=== PATIENT | female | born 1960 | race Caucasian/White ===

== ENCOUNTER → 2017-12-11 | Outpatient (CLI) | payer BC ==
[~2017-12-11] MED LIST: ASPIRIN CHEW81 MG PO; ATENOLOL25 MG PO; BAYER PO; CALCIUM 600 +1 EAC2 PO; CENTRUM SILVER1 EACH PO; CRESTOR20 MG PO; DAILY VITAMIN1 EAC3 PO; ESTRADIOL1 MG PO; EYEPROMISE RESTORE PO; FERROUS SULFAT325 MG PO; GABAPENTIN100 MG PO; MIRAPEX0.25 MG PO; MONTELUKAST SOD10 MG PO; PANTOPRAZOLE SO40 MG PO; PREMARIN0.625 MG PO; ULTRAM 50MG50 MG PO; ZYRTEC10 M3 PO
--- NOTE | 2017-12-11 11:50 | Diagnostic Imaging Report ---
History:Seizures/syncope Comparison studies:None Technique: Axial images were obtained from the skull base to the vertex. Coronal and sagittal images reconstructed from the axial data. Intravenous contrast: None Findings: Scalp/skull: No abnormalities. Extra-axial spaces: No masses. No fluid collections. Brain sulci: Appropriate for age. Ventricles: No hydrocephalus. Parenchyma: No masses, hemorrhage, acute or chronic cortical vascular insults. Sellar/suprasellar region: No abnormalities. Craniocervical junction: Patent foramen magnum. No Chiari one malformation. Incidental findings: Atherosclerotic calcifications in the carotid siphons and distal vertebral arteries. Questionable 5 mm Tornwaldt cyst in the partially visualized nasopharynx at midline Impression: No intracranial abnormalities. Preliminary report provided by Drs. Moreno on 02/10/2018 at 1145 hours Signed by: Dr. Domenic Torres M.D. on 12/11/2017 4:46 PM
== END ==
LOC: CT 10:21
PROVIDERS: ATTEND Internal Medicine Interventional Cardiology
DX: R55 Syncope and collapse (principal); R56.9 Unspecified convulsions
CPT/HCPCS: 70450

== ENCOUNTER → 2019-02-14 | Day surgery (SDC) | payer BC ==
[~2019-02-14] MED LIST changes: +FENTANYL CITRATE/PF 100MCG/2 ML INJ ONE; +FUROSEMIDE40 MG PO; +MIDAZOLAM HCL 2 MG/2 ML VIAL ONE; +PROPOFOL IV EMULSION 10 MG/ML 50 ML VIAL ONE
--- OUTSIDE RECORDS SUMMARY | 2019-02-14 07:58 | XMS REPORT | Continuity of Care Document ---
Author Author [facility] Organization [facility] Address Unknown Phone Unavailable Care Team Providers Care Medical Services Assistant Name Role Phone [employer] Unavailable Unavailable Problems Problem Status Onset Date Classification Date Reported Comments Source ICD 559.0 / CPT 59642 [id number] Active 02/28/2014 [facility] Gastroesophageal reflux disease (disorder) Active Problem 07/08/2015 [facility] Hypertensive disorder, systemic arterial (disorder) Active Problem 07/08/2015 [facility] Sleep apnea (finding) Active Problem 07/08/2015 [facility] Ureteric stone (disorder) Active Problem 07/08/2015 [facility] UNK Active [facility] Medications Medication Details Route Status Patient Instructions Ordering Provider Order Date Source Ketorolac 15 mg, Route: IVP, Q6H, Dosing Weight 113.636, kg, Start date: 03/03/14 12:00:00, Duration: 6 doses or times, Stop date: 03/04/14 18:00:00 Inactive 03/03/2014 [facility] Ancef 1 gm, Route: IVPB, ONCE, Dosing Weight 113.636, kg, Start date: 03/03/14 10:25:00, Duration: 1 doses or times, Stop date: 03/03/14 10:25:00 Inactive 03/03/2014 [facility] Gentamicin Sulfate (CUSTODIAL) Route: IVPB, ONCE, Dosing Weight 113.636, kg, Start date: 03/03/14 10:24:00, Stop date: 03/03/14 10:24:00 Inactive 03/03/2014 [facility] oxybutynin 5 mg oral tablet 5 mg=1 tab, PO, TID, Other- See Comments, # 30 tab, 0 Refill(s) Active 03/03/2014 [facility] Pyridium 100 mg oral tablet 100 mg=1 tab, PO, TID, # 21 tab, 0 Refill(s) Active 03/03/2014 [facility] Acetaminophen 325 MG / Hydrocodone Bitartrate 7.5 MG Oral Tablet [Alice 7.5/325] 1-2 tab, PO, Q4-6H, Pain, # 30 tab, 0 Refill(s) Active 03/03/2014 [facility] Ciprofloxacin 500 MG Oral Tablet [Cipro] 500 mg=1 tab, PO, Q12H, # 14 tab, 0 Refill(s) Active 03/03/2014 [facility] Hydromorphone 0.3 mg, Route: IVP, Q3H, Dosing Weight 113.636, kg, PRN Pain Score 4-6, Start date: 03/03/14 10:15:00, Duration: 30 day, Stop date: 04/02/14 10:14:00 Inactive 03/03/2014 [facility] Naloxone 0.04 mg, Route: IVP, Q2MIN, Dosing Weight 113.636, kg, PRN Narcotic Reversal, Start date: 03/03/14 10:12:00, Duration: 8 doses or times, Stop date: Limited # of times Inactive 03/03/2014 [facility] Diphenhydramine 12.5 mg, Route: IVP, Drug form: INJ, Q6H, Dosing Weight 113.636, kg, PRN Itching, Start date: 03/03/14 10:12:00, Duration: 30 day, Stop date: 04/02/14 10:11:00 Inactive 03/03/2014 [facility] Ondansetron 4 mg, Route: IVP, ONCE, Dosing Weight 113.636, kg, PRN Nausea & Vomiting, Start date: 03/03/14 10:12:00 Inactive 03/03/2014 [facility] Promethazine 6.25 mg, Route: IVPB, ONCE, Dosing Weight 113.636, kg, PRN Nausea & Vomiting, Start date: 03/03/14 10:12:00 Inactive 03/03/2014 [facility] Oxycodone Hydrochloride 1 MG/ML Oral Solution 10 mg, Route: NG, Drug form: LIQ, Q4H, Dosing Weight 113.636, kg, PRN Pain Score 7-10, Start date: 03/03/14 10:12:00, Duration: 30 day, Stop date: 04/02/14 10:11:00 Inactive 03/03/2014 [facility] Oxycodone 10 mg, Route: PO, Drug form: TAB, Q4H, Dosing Weight 113.636, kg, PRN Pain Score 7-10, Start date: 03/03/14 10:12:00, Duration: 30 day, Stop date: 04/02/14 10:11:00 Inactive 03/03/2014 [facility] Acetaminophen 1,000 mg, Route: IVPB, Drug form: INJ, ONCE, Dosing Weight 113.636, kg, PRN Pain Score 1-3, Start date: 03/03/14 10:12:00, Duration: 1 doses or times, Stop date: Limited # of times Inactive 03/03/2014 [facility] Morphine 4 mg, Route: IVP, Q5Min, Dosing Weight 113.636, kg, PRN Pain Score 7-10, Start date: 03/03/14 10:12:00, Duration: 3 doses or times, Stop date: Limited # of times Inactive 03/03/2014 [facility] Flumazenil 0.2 mg, Route: IVP, PRN, Dosing Weight 113.636, kg, PRN Benzodiazepine Reversal, Initial dose, Start date: 03/03/14 10:12:00, Duration: 30 day, Stop date: 04/02/14 10:11:00 Inactive 03/03/2014 [facility] Meperidine 12.5 mg, Route: IVP, Q30Min, Dosing Weight 113.636, kg, PRN Other -See Comment, For shivering, Start date: 03/03/14 10:12:00, Duration: 2 doses or times, Stop date: Limited # of times Inactive 03/03/2014 [facility] Fentanyl 50 microgram, Route: IVP, Q5Min, Dosing Weight 113.636, kg, PRN Pain Score 7-10, Start date: 03/03/14 10:12:00, Duration: 2 doses or times, Stop date: Limited # of times Inactive 03/03/2014 [facility] Ketorolac 30 mg, Route: IVP, ONCE, Dosing Weight 113.636, kg, Start date: 03/03/14 10:12:00, Duration: 1 doses or times, Stop date: 03/03/14 10:12:00 Inactive 03/03/2014 [facility] Hydromorphone 0.5 mg, Route: IVP, Q5Min, Dosing Weight 113.636, kg, PRN Pain Score 7-10, Start date: 03/03/14 10:12:00, Duration: 4 doses or times, Stop date: Limited # of times Inactive 03/03/2014 [facility] Calcium Chloride 0.0014 MEQ/ML / Potassium Chloride 0.004 MEQ/ML / Sodium Chloride 0.103 MEQ/ML / Sodium Lactate 0.028 MEQ/ML Injectable Solution 1,000 mL, Rate: 125 ml/hr, Infuse over: 8 hr, Route: IV, Dosing Weight 113.636 kg, Total Volume: 1,000, Start date: 03/03/14 10:12:00, Duration: 30 day, Stop date: 04/02/14 10:11:00 Inactive 03/03/2014 [facility] Calcium Chloride 0.0014 MEQ/ML / Potassium Chloride 0.004 MEQ/ML / Sodium Chloride 0.103 MEQ/ML / Sodium Lactate 0.028 MEQ/ML Injectable Solution 1,000 mL, Rate: 25 ml/hr, Infuse over: 40 hr, Route: IV, Dosing Weight 113.636 kg, Total Volume: 1,000, Start date: 03/03/14 8:52:00, Duration: 30 day, Stop date: 04/02/14 8:51:00 Inactive 03/03/2014 [facility] Eye Promise restore Eye Promise restore, PO, Daily, Refill(s) 0 Active 03/01/2014 [facility] Calcium 600 +D oral tablet 1 tab, PO, Daily, # 270 tab, 0 Refill(s) Active 03/01/2014 [facility] Aspirin 81 MG Enteric Coated Tablet 81 mg=1 tab, PO, Daily, # 0 tab, 0 Refill(s) Active 03/01/2014 [facility] Ascorbic Acid / Biotin / Folic Acid / Niacin / pantothenate / pyridoxine / Riboflavin / Thiamine / Vitamin B 12 0 Refill(s) Active 03/01/2014 [facility] Trice 0 Refill(s) Active 03/01/2014 [facility] cetirizine hydrochloride 10 MG Oral Tablet [Zyrtec] 10 mg=1 tab, PO, Daily, # 30 tab, 0 Refill(s) Active 03/01/2014 [facility] gabapentin 100 MG Oral Capsule 300 mg=3 cap, PO, Bedtime, # 240 cap, 0 Refill(s) Active 03/01/2014 [facility] Pramipexole 0 Refill(s) Active 03/01/2014 [facility] Premarin 0 Refill(s) Active 03/01/2014 [facility] Rosuvastatin calcium 5 MG Oral Tablet [Crestor] 5 mg=1 tab, PO, Bedtime, # 30 tab, 0 Refill(s) Active 03/01/2014 [facility] Atenolol 25 MG Oral Tablet 25 mg=1 tab, PO, BID, # 60 tab, 0 Refill(s) Active 03/01/2014 [facility] Allergies, Adverse Reactions, Alerts Substance Category Reaction Severity Reaction type Status Date Reported Comments Source breatheen Assertion Drug allergy Active [facility] Immunizations No Data Provided for This Section Results Order Name Results Value Reference Range Date Interpretation Comments Source ELECTROLYTES AGAP 10.3 10.0 - 20.0 03/01/2014 [facility] ELECTROLYTES eGFR 104 03/01/2014 <sup>1</sup>Result Comment: The eGFR is calculated using the CKD-EPI formula. In most young, healthy individuals the eGFR will be >90 mL/min/1.73m2. The eGFR declines with age. An eGFR of 60-89 may be normal in some populations, particularly the elderly, for whom the CKD-EPI formula has not been extensively validated. Use of the eGFR is not recommended in the following populations:& lt;br/>
Individuals with unstable creatinine concentrations, including patients and those with serious co-morbid conditions.

Patients with extremes in muscle mass or diet.

The data above are obtained from the National Kidney Disease Education Program (NKDEP) which additionally recommends that when the eGFR is used in patients with extremes of body mass index for purposes of drug dosing, the eGFR should be multiplied by the estimated BMI. [facility] ELECTROLYTES Chloride Lvl 101 95 - 109 03/01/2014 [facility] ELECTROLYTES Glucose Lvl 71 70 - 99 03/01/2014 <sup>2</sup>Interpretive Data: Adult reference range values reflect the clinical guidelines
of the [place] [employer]. [facility] ELECTROLYTES Potassium Lvl 4.3 3.5 - 5.1 03/01/2014 [facility] ELECTROLYTES Sodium Lvl 139 135 - 145 03/01/2014 [facility] ELECTROLYTES Creatinine Lvl 0.6 0.5 - 1.4 03/01/2014 [facility] ELECTROLYTES BUN 15 7 - 22 03/01/2014 [facility] ELECTROLYTES Calcium Lvl 9.8 8.5 - 10.5 03/01/2014 [facility] ELECTROLYTES CO2 32 24 - 32 03/01/2014 [facility] HEMATOLOGY Eosinophils # 0.2 0.0 - 0.5 03/01/2014 [facility] Segs-Bands # 5.3 1.5 - 8.1 03/01/2014 [facility] HEMATOLOGY Lymphocytes # 3.2 1.0 - 5.5 03/01/2014 [facility] HEMATOLOGY Basophils 0.3 0.0 - 1.0 03/01/2014 [facility] HEMATOLOGY Monocytes # 1.1 0.0 - 0.8 03/01/2014 [facility] HEMATOLOGY Eosinophils 2.3 0.0 - 4.0 03/01/2014 [facility] Monocytes 10.8 2.0 - 12.0 03/01/2014 [facility] HEMATOLOGY Segs 53.9 45.0 - 75.0 03/01/2014 [facility] Lymphocytes 32.7 20.0 - 40.0 03/01/2014 [facility] MCHC 32.7 32.0 - 36.0 03/01/2014 [facility] MCH 28.7 27.0 - 31.0 03/01/2014 [facility] MCV 87.8 80.0 - 98.0 03/01/2014 [facility] WBC 9.9 3.7 - 10.4 03/01/2014 [facility] RBC 4.12 4.20 - 5.40 03/01/2014 [facility] Hgb 11.8 12.0 - 16.0 03/01/2014 [facility] MPV 8.5 7.4 - 10.4 03/01/2014 [facility] Platelet 264 133 - 450 03/01/2014 [facility] HEMATOLOGY RDW 13.6 11.5 - 14.5 03/01/2014 [facility] Hct 36.2 36.0 - 48.0 03/01/2014 [facility] Pathology Reports No Data Provided for This Section Diagnostic Reports Report Value Date Source Abdomen AP DX PROCEDURE: Abdomen 1 view CLINICAL INFORMATION n20.1 ureteral stone, Kidney stone removal February 2014. Kidney stone check up. COMPARISON: May [address] Right upper quadrant surgical barry. Air-filled loops of small and large bowel. Lower pelvic phleboliths. 9 mm central bladder stone is not excluded. Intact osseous structures. SL: 13 05/07/2015 [facility] Consultation Notes No Data Provided for This Section Discharge Summaries No Data Provided for This Section History and Physicals No Data Provided for This Section Vital Signs Vital Sign Value Date Comments Source Systolic (mm Hg) 123 03/03/2014 [facility] Diastolic (mm Hg) 64 03/03/2014 [facility] Diastolic (mm Hg) 70 03/03/2014 [facility] Systolic (mm Hg) 115 03/03/2014 [facility] Respitory Rate 18 03/03/2014 [facility] Systolic (mm Hg) 111 03/03/2014 [facility] Diastolic (mm Hg) 67 03/03/2014 [facility] Respitory Rate 15 03/03/2014 [facility] Respitory Rate 17 03/03/2014 [facility] Heart Rate 66 03/01/2014 [facility] Temperature Oral (F) 97.8 F 03/01/2014 [facility] BMI Calculated 41.69 03/01/2014 [facility] Height 165.1 cm 03/01/2014 [facility] Weight 113.636 03/01/2014 [facility] Encounters Location Location Details Encounter Type Encounter Number Reason For Visit Attending Provider ADM Date DC Date Status Source [facility] OBS Day Surgery [id number] [facility] 03/03/2014 03/03/2014 [facility] OP Lab Registration Only [id number] [facility] 05/07/2015 07/06/2015 [facility] Procedures Procedure Code Date Perfomer Comments Source Appendectomy [id number] [facility] Cardiac catheterization [id number] [facility] section [id number] [facility] Cholecystectomy [id number] [facility] Hernia repair<sup>1</sup> [id number] 2008 [facility] Laparoscopic adjustable gastric banding<sup>2</sup> [id number] 2005 revision 2008 [facility] Tonsillectomy [id number] [facility] Assessment and Plan No Data Provided for This Section Plan of Care No Data Provided for This Section Social History Social History Date Source Social History TypeResponse Alcohol Current, Previous treatment: None. Alcohol use interferes with work or home: No. Drinks more than intended: No. Others hurt by drinking: No. Ready to change: No. Household alcohol concerns: No. Smoking Status Never smoker; Exposure to Tobacco Smoke None; Cigarette Smoking Last 365 Days No; Reg Smoking Cessation Counseling No 03/01/2014 [facility] Family History No Data Provided for This Section Advance Directives No Data Provided for This Section Functional Status No Data Provided for This Section
--- OUTSIDE RECORDS SUMMARY | 2019-02-14 07:58 | XMS REPORT | Summary of Care ---
Author Organization Unknown Address Unknown Phone Unavailable Encounter [facility](TANGELA) [id number] Date(s): 03/03/14 - 03/03/14 [facility] [address] [address] Discharge Disposition: Home Physician Attending: Nahum Way MD Physician_Referring: Nahum Way MD Reason for Visit ICD 559.0 / CPT 66873 [id number] Vital Signs 1 2 3 Most recent to oldest [Reference Range]: 165.1 cm (03/01/14 4:11 PM) Height 97.8 DegF (03/01/14 5:02 PM) Temperature Oral [96.4-99.1 DegF] 123 mmHg (03/03/14 11:15 AM) 115 mmHg (03/03/14 10:52 AM) 111 mmHg (03/03/14 10:45 AM) Systolic Blood Pressure [90-140 mmHg] 64 mmHg (03/03/14 11:15 AM) 70 mmHg (03/03/14 10:52 AM) 67 mmHg (03/03/14 10:45 AM) Diastolic Blood Pressure [60-90 mmHg] 18 BRMIN (03/03/14 10:52 AM) 15 BRMIN (03/03/14 10:45 AM) 17 BRMIN (03/03/14 10:30 AM) Respiratory Rate [14-20 BRMIN] 66 bpm (03/01/14 5:02 PM) Peripheral Pulse Rate [60-100 bpm] 113.636 kg (03/01/14 4:11 PM) Weight 41.69 m2 (03/01/14 4:11 PM) Body Mass Index Problem List Condition Effective Dates Status Health Status Informant GERD Active (gastroesophageal reflux disease)(Confirmed) Hypertension(Confirm Active ed) Sleep Active apnea(Confirmed) Ureteral Active stone(Confirmed) Allergies, Adverse Reactions, Alerts Substance Reaction Severity Status breatheen Active Medications acetaminophen 1,000 mg, Route: IVPB, Drug form: INJ, ONCE, Dosing Weight 113.636, kg, PRN Pain Score 1-3, Start date: 03/03/14 10:12:00, Duration: 1 doses or times, Stop date: Limited # of times Start Date: 03/03/14 Stop Date: 03/03/14 Status: Discontinued Trice 0 Refill(s) Start Date: 03/01/14 Status: Ordered Ancef 1 gm, Route: IVPB, ONCE, Dosing Weight 113.636, kg, Start date: 03/03/14 10:25:0 0, Duration: 1 doses or times, Stop date: 03/03/14 10:25:00 Start Date: 03/03/14 Stop Date: 03/03/14 Status: Completed aspirin 81 mg tablet, enteric coated 81 mg=1 tab, PO, Daily, # 0 tab, 0 Refill(s) Start Date: 03/01/14 Status: Ordered atenolol 25 mg oral tablet 25 mg=1 tab, PO, BID, # 60 tab, 0 Refill(s) Start Date: 03/01/14 Status: Ordered Calcium 600 +D oral tablet 1 tab, PO, Daily, # 270 tab, 0 Refill(s) Start Date: 03/01/14 Status: Ordered Cipro 500 mg oral tablet 500 mg=1 tab, PO, Q12H, # 14 tab, 0 Refill(s) Start Date: 03/03/14 Stop Date: 03/10/14 Status: Ordered Crestor 5 mg oral tablet 5 mg=1 tab, PO, Bedtime, # 30 tab, 0 Refill(s) Start Date: 03/01/14 Status: Ordered diphenhydrAMINE 12.5 mg, Route: IVP, Drug form: INJ, Q6H, Dosing Weight 113.636, kg, PRN Itching , Start date: 03/03/14 10:12:00, Duration: 30 day, Stop date: 04/02/14 10:11:00 Start Date: 03/03/14 Stop Date: 03/03/14 Status: Discontinued Eye Promise restore Eye Promise restore, PO, Daily, Refill(s) 0 Start Date: 03/01/14 Status: Ordered fentaNYL 50 microgram, Route: IVP, Q5Min, Dosing Weight 113.636, kg, PRN Pain Score 7-10, Start date: 03/03/14 10:12:00, Duration: 2 doses or times, Stop date: Limited # of times Start Date: 03/03/14 Stop Date: 03/03/14 Status: Discontinued fentaNYL 25 microgram, Route: IVP, Q5Min, Dosing Weight 113.636, kg, PRN Pain Score 4-6, Start date: 03/03/14 10:12:00, Duration: 4 doses or times, Stop date: Limited # of times Start Date: 03/03/14 Stop Date: 03/03/14 Status: Discontinued flumazenil 0.2 mg, Route: IVP, PRN, Dosing Weight 113.636, kg, PRN Benzodiazepine Reversal, Initial dose, Start date: 03/03/14 10:12:00, Duration: 30 day, Stop date: 04/02 10:11:00 Start Date: 03/03/14 Stop Date: 03/03/14 Status: Discontinued gabapentin 100 mg oral capsule 300 mg=3 cap, PO, Bedtime, # 240 cap, 0 Refill(s) Start Date: 03/01/14 Status: Ordered gentamicin Route: IVPB, ONCE, Dosing Weight 113.636, kg, Start date: 03/03/14 10:24:00, Sto p date: 03/03/14 10:24:00 Start Date: 03/03/14 Stop Date: 03/03/14 Status: Completed hydromorphone 0.5 mg, Route: IVP, Q5Min, Dosing Weight 113.636, kg, PRN Pain Score 7-10, Start date: 03/03/14 10:12:00, Duration: 4 doses or times, Stop date: Limited # of ti mes Start Date: 03/03/14 Stop Date: 03/03/14 Status: Discontinued hydromorphone 0.3 mg, Route: IVP, Q3H, Dosing Weight 113.636, kg, PRN Pain Score 4-6, Start da te: 03/03/14 10:15:00, Duration: 30 day, Stop date: 04/02/14 10:14:00 Start Date: 03/03/14 Stop Date: 03/03/14 Status: Discontinued ketorolac 30 mg, Route: IVP, ONCE, Dosing Weight 113.636, kg, Start date: 03/03/14 10:12:0 0, Duration: 1 doses or times, Stop date: 03/03/14 10:12:00 Start Date: 03/03/14 Stop Date: 03/03/14 Status: Discontinued ketorolac 15 mg, Route: IVP, Q6H, Dosing Weight 113.636, kg, Start date: 03/03/14 12:00:00 , Duration: 6 doses or times, Stop date: 03/04/14 18:00:00 Start Date: 03/03/14 Stop Date: 03/03/14 Status: Discontinued Lactated Ringers Injection IV 1000 mL 1,000 mL, Rate: 125 ml/hr, Infuse over: 8 hr, Route: IV, Dosing Weight 113.636 k g, Total Volume: 1,000, Start date: 03/03/14 10:12:00, Duration: 30 day, Stop da te: 04/02/14 10:11:00 Start Date: 03/03/14 Stop Date: 03/03/14 Status: Discontinued Lactated Ringers Injection IV 1000 mL 1,000 mL, Rate: 25 ml/hr, Infuse over: 40 hr, Route: IV, Dosing Weight 113.636 k g, Total Volume: 1,000, Start date: 03/03/14 8:52:00, Duration: 30 day, Stop carly e: 04/02/14 8:51:00 Start Date: 03/03/14 Stop Date: 03/03/14 Status: Discontinued meperidine 12.5 mg, Route: IVP, Q30Min, Dosing Weight 113.636, kg, PRN Other -See Comment, For shivering, Start date: 03/03/14 10:12:00, Duration: 2 doses or times, Stop d ate: Limited # of times Start Date: 03/03/14 Stop Date: 03/03/14 Status: Discontinued morphine Sulfate 4 mg, Route: IVP, Q5Min, Dosing Weight 113.636, kg, PRN Pain Score 7-10, Start d ate: 03/03/14 10:12:00, Duration: 3 doses or times, Stop date: Limited # of time s Start Date: 03/03/14 Stop Date: 03/03/14 Status: Discontinued morphine Sulfate 2 mg, Route: IVP, Q5Min, Dosing Weight 113.636, kg, PRN Pain Score 4-6, Start da te: 03/03/14 10:12:00, Duration: 5 doses or times, Stop date: Limited # of times Start Date: 03/03/14 Stop Date: 03/03/14 Status: Discontinued multivitamin 0 Refill(s) Start Date: 03/01/14 Status: Ordered naloxone 0.04 mg, Route: IVP, Q2MIN, Dosing Weight 113.636, kg, PRN Narcotic Reversal, St art date: 03/03/14 10:12:00, Duration: 8 doses or times, Stop date: Limited # of times Start Date: 03/03/14 Stop Date: 03/03/14 Status: Discontinued [place] 7.5/325 oral tablet 1-2 tab, PO, Q4-6H, Pain, # 30 tab, 0 Refill(s) Start Date: 03/03/14 Stop Date: 03/08/14 Status: Ordered ondansetron 4 mg, Route: IVP, ONCE, Dosing Weight 113.636, kg, PRN Nausea & Vomiting, Start date: 03/03/14 10:12:00 Start Date: 03/03/14 Stop Date: 03/03/14 Status: Discontinued oxybutynin 5 mg oral tablet 5 mg=1 tab, PO, TID, Other-See Comments, # 30 tab, 0 Refill(s) Start Date: 03/03/14 Status: Ordered oxyCODONE 10 mg, Route: PO, Drug form: TAB, Q4H, Dosing Weight 113.636, kg, PRN Pain Score 7-10, Start date: 03/03/14 10:12:00, Duration: 30 day, Stop date: 04/02/14 10:1 1:00 Start Date: 03/03/14 Stop Date: 03/03/14 Status: Discontinued oxyCODONE 5 mg, Route: PO, Drug form: TAB, Q4H, Dosing Weight 113.636, kg, PRN Pain Score 4-6, Start date: 03/03/14 10:12:00, Duration: 30 day, Stop date: 04/02/14 10:11: 00 Start Date: 03/03/14 Stop Date: 03/03/14 Status: Discontinued oxyCODONE 5 mg/5 mL oral solution 10 mg, Route: NG, Drug form: LIQ, Q4H, Dosing Weight 113.636, kg, PRN Pain Score 7-10, Start date: 03/03/14 10:12:00, Duration: 30 day, Stop date: 04/02/14 10:1 1:00 Start Date: 03/03/14 Stop Date: 03/03/14 Status: Discontinued oxyCODONE 5 mg/5 mL oral solution 5 mg, Route: NG, Drug form: LIQ, Q4H, Dosing Weight 113.636, kg, PRN Pain Score 4-6, Start date: 03/03/14 10:12:00, Duration: 30 day, Stop date: 04/02/14 10:11: 00 Start Date: 03/03/14 Stop Date: 03/03/14 Status: Discontinued pramipexole 0 Refill(s) Start Date: 03/01/14 Status: Ordered Premarin 0 Refill(s) Start Date: 03/01/14 Status: Ordered promethazine 6.25 mg, Route: IVPB, ONCE, Dosing Weight 113.636, kg, PRN Nausea & Vomiting, Start date: 03/03/14 10:12:00 Start Date: 03/03/14 Stop Date: 03/03/14 Status: Discontinued Pyridium 100 mg oral tablet 100 mg=1 tab, PO, TID, # 21 tab, 0 Refill(s) Start Date: 03/03/14 Stop Date: 03/10/14 Status: Ordered ZyrTEC 10 mg oral tablet 10 mg=1 tab, PO, Daily, # 30 tab, 0 Refill(s) Start Date: 03/01/14 Status: Ordered Results ELECTROLYTES Most recent to 1 oldest [Reference Range]: Sodium Lvl [135-145 139 mEq/L mEq/L] (03/01/14 4:50 PM) Potassium Lvl 4.3 mEq/L [3.5-5.1 mEq/L] (03/01/14 4:50 PM) Chloride Lvl [95-109 101 mEq/L mEq/L] (03/01/14 4:50 PM) CO2 [24-32 mEq/L] 32 mEq/L (03/01/14 4:50 PM) AGAP [10.0-20.0 10.3 mEq/L mEq/L] (03/01/14 4:50 PM) CHEM PANEL Most recent to 1 oldest [Reference Range]: Creatinine Lvl 0.6 mg/dL [0.5-1.4 mg/dL] (03/01/14 4:50 PM) eGFR 104 mL/min/1.73m2 1 *NA* (03/01/14 4:50 PM) BUN [7-22 mg/dL] 15 mg/dL (03/01/14 4:50 PM) Glucose Lvl [70-99 71 mg/dL 2 mg/dL] (03/01/14 4:50 PM) Calcium Lvl 9.8 mg/dL [8.5-10.5 mg/dL] (03/01/14 4:50 PM) 1Result Comment: The eGFR is calculated using the CKD-EPI formula. In most young, healthy individuals the eGFR will be >90 mL/min/1.73m2. The eGFR declines with age. An eGFR of 60-89 may be normal in some populations, particularly the elderly, for whom the CKD-EPI formula has not been extensively validated. Use of the eGFR is not recommended in the following populations: Individuals with unstable creatinine concentrations, including patients and those with serious co-morbid conditions. Patients with extremes in muscle mass or diet. The data above are obtained from the National Kidney Disease Education Program ( NKDEP) which additionally recommends that when the eGFR is used in patients with extremes of body mass index for purposes of drug dosing, the eGFR should be mul tiplied by the estimated BMI. 2Interpretive Data: Adult reference range values reflect the clinical guidelines of the [place] [employer]. HEMATOLOGY Most recent to 1 oldest [Reference Range]: WBC [3.7-10.4 K/CMM] 9.9 K/CMM (03/01/14 4:50 PM) RBC [4.20-5.40 4.12 M/CMM M/CMM] *LOW* (03/01/14 4:50 PM) Hgb [12.0-16.0 g/dL] 11.8 g/dL *LOW* (03/01/14 4:50 PM) Hct [36.0-48.0 %] 36.2 % (03/01/14 4:50 PM) MCV [80.0-98.0 fL] 87.8 fL (03/01/14 4:50 PM) MCH [27.0-31.0 pg] 28.7 pg (03/01/14 4:50 PM) MCHC [32.0-36.0 32.7 g/dL g/dL] (03/01/14 4:50 PM) RDW [11.5-14.5 %] 13.6 % (03/01/14 4:50 PM) Platelet [133-450 264 K/CMM K/CMM] (03/01/14 4:50 PM) MPV [7.4-10.4 fL] 8.5 fL (03/01/14 4:50 PM) Segs [45.0-75.0 %] 53.9 % (03/01/14 4:50 PM) Lymphocytes 32.7 % [20.0-40.0 %] (03/01/14 4:50 PM) Monocytes [2.0-12.0 10.8 % %] (03/01/14 4:50 PM) Eosinophils [0.0-4.0 2.3 % %] (03/01/14 4:50 PM) Basophils [0.0-1.0 0.3 % %] (03/01/14 4:50 PM) Segs-Bands # 5.3 K/CMM [1.5-8.1 K/CMM] (03/01/14 4:50 PM) Lymphocytes # 3.2 K/CMM [1.0-5.5 K/CMM] (03/01/14 4:50 PM) Monocytes # [0.0-0.8 1.1 K/CMM K/CMM] *HI* (03/01/14 4:50 PM) Eosinophils # 0.2 K/CMM [0.0-0.5 K/CMM] (03/01/14 4:50 PM) Medications Administered During Your Visit No data available for this section Immunizations No data available for this section Procedures Procedure Type Body Site Date of Procedure Related Diagnosis Appendectomy Cardiac catheterization section Cholecystectomy Hernia repair1 Laparoscopic adjustable gastric banding2 Tonsillectomy 86803 99131 revision 2009 Social History Social History Type Response Alcohol Use: Current, Previous treatment: None, Has alcohol use interfered with work or home life? No, Do you ever drink more than intended? No, Has anyone been hurt or at risk by your drinking? No, Ready to change: No, Concerns about alcohol use in household: No Smoking Status Never smoker, Exposure to Tobacco Smoke None, Cigarette Smoking Last 365 Days No, Reg Smoking Cessation Counseling No
--- OUTSIDE RECORDS SUMMARY | 2019-02-14 07:58 | XMS REPORT | Summary of Care ---
Author Author [facility] Organization [facility] Address Unknown Phone Unavailable Encounter [facility] Letty_yeimi(FIN) [id number] Date(s): 05/07/15 - 07/05/15 [facility] [address] [place] [address]- [phone] Discharge Disposition: Home Attending Physician: Nahum Way MD Vital Signs No data available for this section Problem List Condition Effective Dates Status Health Status Informant GERD Active (gastroesophageal reflux disease)(Confirmed) Hypertension(Confirm Active ed) Sleep Active apnea(Confirmed) Ureteral Active stone(Confirmed) Allergies, Adverse Reactions, Alerts Substance Reaction Severity Status breatheen Active Medications No data available for this section Results No data available for this section Immunizations No data available for this section Procedures Procedure Date Related Diagnosis Body Site Appendectomy Cardiac catheterization section Cholecystectomy Hernia repair1 Laparoscopic adjustable gastric banding2 Tonsillectomy 95817 [id number] revision 2009 Social History Social History Type Response Alcohol Current, Previous treatment: None. Alcohol use interferes with work or home: No. Drinks more than intended: No. Others hurt by drinking: No. Ready to change: No. Household alcohol concerns: No. Smoking Status Never smoker; Exposure to Tobacco Smoke None; Cigarette Smoking Last 365 Days No; Reg Smoking Cessation Counseling No Assessment and Plan No data available for this section
--- OUTSIDE RECORDS SUMMARY | 2019-02-14 07:58 | XMS REPORT ---
Author [facility] Address Unknown Phone Unavailable Care Team Providers Care Licensed Optician Name Role Phone ANDRE NIX Unavailable Unavailable RADHA RIOS Unavailable Unavailable Problems This patient has no known problems. Allergies, Adverse Reactions, Alerts This patient has no known allergies or adverse reactions. Medications This patient has no known medications. Results Test Description Test Time Test Comments Text Results Atomic Results Result Comments CT BRAIN WO 2017-12-11 11:47:00 [place] [address] Patient Name: ANDREW RIOS MR #: [id number] : 1960 Age/Sex: 57/F Req #: [id number] Adm Physician: Ordered by: ANDRE NIX MD Report #: [id number] Location: CT Room/Bed: Procedure: [id number] CT/CT BRAIN WO Exam Date: 12/11/17 Exam Time: 1109 REPORT STATUS: Signed History:Seizures/syncope Comparison studies:None Technique: Axial images were obtained from the skull base to the vertex. Coronal and sagittal images reconstructed from the axial data. Intravenous contrast: None Findings: Scalp/skull: No abnormalities. Extra-axial spaces: No masses. No fluid collections. Brain sulci: Appropriate for age. Ventricles: No hydrocephalus. Parenchyma: No masses, hemorrhage, acute or chronic cortical vascular insults. Sellar/suprasellar region: No abnormalities. Craniocervical junction: Patent foramen magnum. No Chiari one malformation. Incidental findings: Atherosclerotic calcifications in the carotid siphons and distal vertebral arteries. Questionable 5 mm Tornwaldt cyst in the partially visualized nasopharynx at midline Impression: No intracranial abnormalities. Preliminary report provided by Drs. Moreno on 02/10/2018 at 1145 hours Signed by: Dr. Domenic Torres M.D. on 12/11/2017 4:46 PM Dictated By: DOMENIC TORRES MD, MD 45 Transcribed By: AMBERLY on 12/11/171645 COPY TO: ANDRE NIX MD MRI WRIST RIGHT WO [place] [address] Patient Name: ANDREW RIOS MR #: [id number] : 1960 Age/Sex: 57/F Req #: [id number] Adm Physician: Ordered by: RADHA RIOS DO Report #: [id number] Location: MRI Room/Bed: Procedure: [id number] MRI/MRI WRIST RIGHT WO Exam Date: 05/29/17 Exam Time: 1315 REPORT STATUS: Signed TECHNIQUE: Magnetic resonance imaging of the RIGHT WRIST was performed WITHOUT injected contrast, on a 1.5 juan carlos magnet. Motion artifact partially limits sensitivity and specificity of the exam. HISTORY: Contusion, fell, metacarpophalangeal joint COMPARISON: None available. FINDINGS: Bone and bone marrow: No focal or infiltrative bone marrow replacing abnormality. No osteonecrosis. The wrist is imaged in extension. At least 2 punctate ossifications adjacent to the tip of the ulnar styloid process with a paucity of adjacent edema, the largest 3 mm. Joints: Trace intercarpal and carpometacarpal effusions, dorsal greater than volar. Minimal scattered degenerative changes. Ligaments: Scapholunate: Visible intact fibers without widening of the joint space. Lunotriquetral: Visible intact fibers without widening of the joint space. Triangular fibrocartilage complex: Intact Extrinsic ligaments: Intact Tendons: The flexor and extensor tendons are intact. Carpal tunnel: The median nerve is within normal limits. Other soft tissues: Otherwise, unremarkable. IMPRESSION: 1. No acute fracture. 2. Chronic punctate unhealed avulsion fractures from the tip of the ulnar styloid process. 3. Mild nonspecific arthritis, may be posttraumatic given the provided history. Signed by: Dr. Dario Galdamez M.D. on 05/29/2017 3:13 PM Dictated By: DARIO GALDAMEZ DO 1513 Transcribed By: AMBERLY on 05/29/17 1512 COPY TO: RADHA RIOS DO
[2019-02-14 10:15] VITALS: BP 122/78
--- NOTE | 2019-02-14 11:50 | Operative Report ---
DATE OF PROCEDURE: 02/14/2019 SURGEON: Clemente Rivera MD PROCEDURE PERFORMED: Colonoscopy. PREOPERATIVE DIAGNOSES: History of colon polyps and persistent diarrhea. POSTOPERATIVE DIAGNOSES: History of colon polyps, none found, diverticulosis scattered throughout the colon and nonspecific colitis. PREOERATIVE MEDICATIONS: Consisted of IV sedation administered under MAC anesthesia. PROCEDURE IN DETAIL: Using an [place] video colonoscope was inserted into the patient's rectum and advanced without difficulty to the level of cecum. A photo was obtained to document the complete examination. The colonoscope was drawn from the cecum back down to the rectum. No polypoid lesions, tumor, or masses were found. Diverticula are present scattered throughout the entire colon without evidence of diverticulitis. No inflammatory changes were noted in the colonic mucosa. Random biopsies were obtained throughout the colon looking for microscopic colitis. Clemente Rivera MD SAF/MODL /[id number]
== END | disposition home or self-care (01) ==
LOC: OR 07:55
PROVIDERS: ATTEND Internal Medicine Gastroenterology
DX: K52.9 Noninfective gastroenteritis and colitis, unspecified (principal); K57.30 Diverticulosis of large intestine without perforation or abscess without bleeding; I10 Essential (primary) hypertension; E78.5 Hyperlipidemia, unspecified; G47.33 Obstructive sleep apnea (adult) (pediatric); K57.90 Diverticulosis of intestine, part unspecified, without perforation or abscess without bleeding; D64.9 Anemia, unspecified; I45.10 Unspecified right bundle-branch block; Z88.8 Allergy status to other drugs, medicaments and biological substances; Z01.810 Encounter for preprocedural cardiovascular examination; Z79.82 Long term (current) use of aspirin; Z68.37 Body mass index [BMI] 37.0-37.9, adult; Z87.01 Personal history of pneumonia (recurrent)
CPT/HCPCS: 45380; 93005; J2250; J2704; J3010